=== PATIENT | female | born 1985 ===

== ENCOUNTER 2018-07-22 09:19 | Day surgery (SDC) | payer OTHER ==
[2018-07-22] MEDS ORDERED: NEXIUM 24HR20 M1 PO (11:47)
== END 2018-07-22 14:10 | disposition home or self-care (01) ==
LOC: AMB-ENDOS 09:19
DX: K29.60 Other gastritis without bleeding (principal)

== ENCOUNTER → 2020-04-19 | Outpatient (CLI) | payer OTHER ==
[~2020-04-19] MED LIST: FOLIC ACID0.8 M1 PO; NEXIUM 24HR20 M1 PO; PRENATAL CAPLE1 EAC1 PO
== END | disposition home or self-care (01) ==
LOC: PRENATAL 10:00
PROVIDERS: ATTEND Obstetrics & Gynecology Maternal & Fetal Medicine
DX: O35.0XX1 Maternal care for (suspected) central nervous system malformation in fetus, fetus 1 (principal); O28.1 Abnormal biochemical finding on antenatal screening of mother; O35.3XX1 Maternal care for (suspected) damage to fetus from viral disease in mother, fetus 1; O34.32 Maternal care for cervical incompetence, second trimester; Z36.89 Encounter for other specified antenatal screening; Z3A.19 19 weeks gestation of pregnancy

== ENCOUNTER 2020-04-21 03:51 | Inpatient (IN) | payer OTHER ==
[~2020-04-21] VITALS: Ht 170.2 cm; Wt 108.0 kg
[~2020-04-21 03:51] MED LIST changes: -FOLIC ACID0.8 M1 PO; -PRENATAL CAPLE1 EAC1 PO
[2020-04-21] MEDS ORDERED: PRENATAL CAPLE1 EAC1 PO (04:01)
[2020-04-21] MEDS ORDERED: FOLIC ACID0.8 M1 PO (04:01)
== END 2020-04-22 13:45 | disposition home or self-care (01) | DRG 805 ==
LOC: OBS/DEL 03:51 → LDR 06:05 → O/R 10:17 → OB/GYN 12:20
PROVIDERS: ADMIT Obstetrics & Gynecology; ATTEND Obstetrics & Gynecology
PROC: 10D17Z9 Manual Extraction of Products of Conception, Retained, Via Natural or Artificial Opening (ICD-10-PCS; 2020-04-21)
PROC: 4A0HXFZ Measurement of Products of Conception, Cardiac Rhythm, External Approach (ICD-10-PCS; 2020-04-21)
PROC: 10E0XZZ Delivery of Products of Conception, External Approach (ICD-10-PCS; principal; 2020-04-21 09:00)
DX: O60.12X0 Preterm labor second trimester with preterm delivery second trimester, not applicable or unspecified (principal); O41.1220 Chorioamnionitis, second trimester, not applicable or unspecified; Z37.1 Single stillbirth; O34.32 Maternal care for cervical incompetence, second trimester; O36.4XX0 Maternal care for intrauterine death, not applicable or unspecified; O72.2 Delayed and secondary postpartum hemorrhage; Z3A.20 20 weeks gestation of pregnancy